=== PATIENT | male | born 1975 | race American Indian/Alaskan Native ===

== ENCOUNTER 2022-02-20 19:52 | Emergency (ER) | payer SELFPAY ==
[2022-02-20 20:06] VITALS: BP 181/123
[2022-02-20] MEDS ORDERED: ASPIRIN 325 MG TAB PO ONE (20:06)
--- NOTE | 2022-02-20 20:39 | XRay Report ---
CHEST 2 VIEWS INDICATION / CLINICAL INFORMATION: Chest pain. COMPARISON: None available. FINDINGS: SUPPORT DEVICES: None. HEART / MEDIASTINUM: The heart size and pulmonary vasculature are normal. The aorta is normal in aaron esdras. LUNGS / PLEURA: There is minimal subsegmental atelectasis in the left lateral lung base. The lungs ar e otherwise clear. No pleural abnormality. No pneumothorax. ADDITIONAL FINDINGS: No significant additional findings. IMPRESSION: Minimal left basilar subsegmental atelectasis. Signer Name: Vineet Perales MD Signed: 02/20/2022 8:35 PM Workstation Name: [id number]
[2022-02-20 21:36] LABS: Hematocrit 45.5 % (35.5-45.6); Hemoglobin 15.4 gm/dl (11.8-15.2); Mean Corpuscular HGB Conc 34 % (32-34); Mean Corpuscular Volume 87 fl (84-94); Platelet Count 229 K/mm3 (140-440); Red Blood Count 5.23 M/mm3 (3.65-5.03); Red Cell Distribution Width 14.9 % (13.2-15.2)
[2022-02-20 21:54] LABS: Alanine Aminotransferase 121 units/L (7-56); Albumin 5.1 g/dL (3.9-5); BUN/Creatinine Ratio 15; Blood Urea Nitrogen 15 mg/dL (9-20); Calcium 10.4 mg/dL (8.4-10.2); Hemolysis Index 8
[2022-02-21 02:02] LABS: Anisocytosis 1+; Basophils % (Manual) 0 % (0.0-1.8); Platelet Estimate Consistent w Auto; Total Cells Counted 100
--- NOTE | 2022-02-21 18:17 | Electrocardiograph Report ---
[facility] Test Date: 2022-02-20 Test Time: 19:55:55 Pat Name: CHANTAL SPENCER Department: Room: Gender: M Development Officer: ER : 1975 Requested By: ED DOC Order Number: [id number] Reading MD: Pineda Silva Measurements Intervals [place] Rate: 93 P: 48 [place]: 151 QRS: 10 QRSD: 81 T: 28 QT: 356 QTc: 442 Interpretive Statements Sinus rhythm Probable left atrial enlargement No previous ECG available for comparison Electronically Signed On 02-21-2022 18:17:04 EDT by Pineda Silva
== END 2022-02-23 02:13 | disposition left against medical advice (07) ==
LOC: ED 19:52
DX: R07.9 Chest pain, unspecified (principal); Z53.21 Procedure and treatment not carried out due to patient leaving prior to being seen by health care provider
CPT/HCPCS: 36415; 71046; 80053; 84484; 85007; 85025; 93005